=== PATIENT | male | born 1985 | race Caucasian/White ===

== ENCOUNTER 2020-02-23 09:14 | Day surgery (SDC) | payer BC, SELFPAY ==
[2020-02-16 10:43] LABS: BASOPHILS % (AUTO) 0.5 % (0.0-2.0); EOSINOPHILS # (AUTO) 0.1 K/uL (0-0.4); EOSINOPHILS % (AUTO) 1.7 % (0.0-4.0); HEMATOCRIT 45.9 % (36-52); HEMOGLOBIN 15.5 g/dL (12.0-18.0); LYMPHOCYTES # (AUTO) 1.3 K/uL (2.0-11.5); LYMPHOCYTES % (AUTO) 31.3 % (20.5-51.1); MEAN CORPUSCULAR HEMOGLOBIN 31 pg (27-31); MEAN CORPUSCULAR HGB CONC 34 g/dL (33-37); MEAN CORPUSCULAR VOLUME 90.9 fL (80-94); MONOCYTES # (AUTO) 0.4 K/uL (0.8-1.0); MONOCYTES % (AUTO) 9.6 % (1.7-9.3); NEUTROPHILS # (AUTO) 2.3 K/uL (1.8-7.7); NEUTROPHILS % (AUTO) 56.9 % (42.2-75.2); PLATELET COUNT (AUTO) 204 K/uL (140-450); RED BLOOD CELL COUNT(AUTO) 5.05 MIL/uL (4.20-6.10); RED CELL DISTRIBUTION WIDTH 12.9 % (11.6-13.7); WHITE BLOOD COUNT (AUTO) 4.1 K/uL (4.8-10.8)
[2020-02-16 10:45] LABS: ANION GAP 14.4 (8-16); CARBON DIOXIDE 29.4 mmol/L (21-32); POTASSIUM 3.8 mmol/L (3.5-5.1); TOTAL BILIRUBIN 0.5 mg/dL (0.0-1.0)
[~2020-02-23] VITALS: Ht 157.5 cm; Wt 59.0 kg
[2020-02-23] MEDS ORDERED: BUPIVACAINE-MPF 0.25% 30 ML VIAL INJ ONE (17:41)
[2020-02-23] MEDS ORDERED: LIDOCAINE 1% 500 MG/50 ML VIAL ONE (17:41)
[2020-02-23] MEDS ORDERED: DEXAMETHASONE 4 MG/ML VIAL ONE (18:01)
[2020-02-23] MEDS ORDERED: GLYCOPYRROLATE 0.2 MG/ML VIAL ONE (18:01)
[2020-02-23] MEDS ORDERED: PROPOFOL 200 MG/20 ML VIAL IV ONE (18:01)
[2020-02-23] MEDS ORDERED: ONDANSETRON 4 MG/2 ML VIAL ONE (18:01)
[2020-02-23] MEDS ORDERED: fentaNYL citrate 0.05 MG/ML VIAL ONE (18:01)
[2020-02-23] MEDS ORDERED: ePHEDrine 50 MG/ML VIAL ONE (18:01)
[2020-02-23] MEDS ORDERED: ONDANSETRON 4 MG/2 ML VIAL IV PRN (19:00)
[2020-02-23] MEDS ORDERED: MORPHINE SULFATE 2 MG/ML SYR IVP PRN (19:00)
[2020-02-23] MEDS ORDERED: HYDROcodone/APAP 5/325 MG 1 TAB TAB PO PRN (19:00)
[2020-02-23] MEDS ORDERED: MORPHINE SULFATE 4 MG/ML SYR IV PRN (19:00)
[2020-02-23] MEDS ORDERED: HYDROmorphone 1 MG/ML AMP IVP PRN ×2 (19:00→19:05)
[2020-02-23] MEDS ORDERED: ONDANSETRON 4 MG/2 ML VIAL IVP PRN (19:05)
[2020-02-23] MEDS ORDERED: MEPERIDINE 25 MG/ML SYR IVP PRN (19:05)
[2020-02-23] MEDS ORDERED: MEPERIDINE 25 MG/ML SYR ONE (19:22)
== END 2020-02-23 20:25 | disposition home or self-care (01) ==
LOC: MMU 09:14 → MDS 09:14
PROVIDERS: ATTEND Surgery
DX: N62 Hypertrophy of breast (principal); N64.4 Mastodynia; Z20.828 Contact with and (suspected) exposure to other viral communicable diseases
CPT/HCPCS: 19120; 36415; 71046; 80053; 85025; 88307; J0690; J1100; J2001; J2175; J2405; J2704; J3010; J3490; J7060; J7120; U0003